=== PATIENT | female | born 1965 | race Caucasian/White ===

== ENCOUNTER → 2016-08-16 | Outpatient (CLI) | payer BC ==
[~2016-08-16] MED LIST: ANAS1TAB PO; CALC600T4 PO; CHOL400C PO
--- NOTE | 2016-08-17 10:29 | RAD ---
DATE: 08/16/2016 EXAM: DIGITAL SCREEN BILAT W/CAD HISTORY: Previous left breast cancer COMPARISON: 08/08/2015, 07/19/2014 This study was interpreted with the benefit of Computerized Aided Detection (CAD). FINDINGS: There are scattered fibroglandular densities in the breasts. There is a stable 5 cm mass in the posterolateral aspect of the left breast. This is most likely an old postoperative hematoma/seroma. A cluster of 2 nodules at the 12:00 location the left breast is unchanged. There is a coarse calcification in this region as well as a biopsy marker. Reportedly the biopsy of the larger nodule revealed a fibroadenoma. There is an unchanged small nodule in the posterolateral aspect of the right breast. A benign type calcification and an additional biopsy marker are again noted in the upper outer quadrant of the right breast. No new or enlarging breast densities are seen. IMPRESSION: Stable mammograms without evidence of malignancy. BI-RADS CATEGORY: 2 BENIGN FINDING(S) RECOMMENDED FOLLOW-UP: 12M 12 MONTH FOLLOW-UP PQRS compliance statement: Patient information was entered into a reminder system with a target due date for the next mammogram. Mammography is a sensitive method for finding small breast cancers, but it does not detect them all and is not a substitute for careful clinical examination. A negative mammogram does not negate a clinically suspicious finding and should not result in delay in biopsying a clinically suspicious abnormality. "Our facility is accredited by the [employer] Mammography [employer]."
== END | disposition home or self-care (01) ==
LOC: MAMMO 15:11
PROVIDERS: ATTEND Internal Medicine Hematology & Oncology
DX: Z12.31 Encounter for screening mammogram for malignant neoplasm of breast (principal)
CPT/HCPCS: G0202; 77067

== ENCOUNTER → 2017-02-06 | Outpatient (CLI) | payer BC ==
--- NOTE | 2017-02-06 11:06 | RAD ---
MRI Lumbar Spine without contrast History: Severe low back pain, left hip pain Technique: Multiplanar, multi sequential noncontrast MR imaging was performed of the lumbar spine. Contrast: None Comparison: None Findings: There appears to be transitional anatomy of the lumbar spine. For the purpose of this report, there is partially formed intervertebral disc space at what is considered S1-S2 with the most inferior fully formed intervertebral disc space considered L5-S1. There is negligible anterior spondylolisthesis at what considered L5-S1. There is ozpt-rc-wmabghkj degenerative disc disease at L5-S1, mild disc desiccation L4-5 and L3-4. There is no significant marrow edema. Conus terminates at L1-2. There is mild lumbar levoscoliosis L3-L4: There is a shallow protrusion in the inferior right neural foramen and right extraforaminal region with associated annular tear. There is yjmj-iu-lzgtypjt narrowing of the right neural foramen greater distally with protrusion contacting the proximal right extraforaminal L3 nerve root. Left neural foramen and spinal canal are adequate. L4-L5: There is mild facet degenerative change greater on the left. Spinal canal and neural foramina are adequate. L5-S1: There is protrusion/mostly contained extrusion eccentric to the far left lateral recess and inferior left neural foramen. There is contact of the ventral surface of the descending left S1 nerve root in the far left lateral recess without displacement. There is moderate to severe narrowing of the left neural foramen with contact of the posterior undersurface of the exiting left L5 nerve root in the neural foramen. There is myrf-fl-ikwsliiw narrowing of the right neural foramen. Impression: 1. There is transitional anatomy, partially formed intervertebral disc space at what is considered S1-S2 with the most inferior fully formed intervertebral disc space considered L5-S1 at which there is negligible anterior spondylolisthesis. 2. Protrusion/mostly contained extrusion at L5-S1 results in narrowing of the left L5-S1 neural foramen, also contacting the descending left S1 nerve root without displacement. 3. There is diuz-db-dmezspvu narrowing of the right L3-4 neural foramen, also protrusion contacting the proximal extraforaminal right L3 nerve root at this level. 4. There is cydq-ka-qjjurmav degenerative disc disease L5-S1. Electronically signed by: Patel Torres MD (02/06/2017 11:03 AM) [id number]
--- NOTE | 2017-02-06 11:28 | RAD ---
MR of the left hip Indication: Left hip pain. Technique: Standard multiplanar sequences are obtained. Findings: Bones: No bone lesion, acute fracture or acute bone marrow edema. No femoral head osteonecrosis. Effusion: No significant effusion Cartilage: No evidence of acute cartilage defect or advanced DJD. Labrum: No evidence of labral tear or para labral cyst Gluteus minimus and medius tendon: Mild left gluteus minimus tendinosis. No evidence of tear. Gluteus medius tendon intact. Hamstring tendon: Intact Iliopsoas tendon: Intact Rectus femoris tendon attachment:Intact Soft tissue: No acute findings Incidentally noted is diverticulosis of the partially visualized sigmoid colon. Impression: Mild left gluteus minimus tendinosis. Electronically signed by: Irineo Vance MD (02/06/2017 11:25 AM) [facility]
== END | disposition home or self-care (01) ==
LOC: MRI 10:02
PROVIDERS: ATTEND Nurse Practitioner Family
DX: M51.26 Other intervertebral disc displacement, lumbar region (principal); M51.37 Other intervertebral disc degeneration, lumbosacral region; M62.48 Contracture of muscle, other site; M43.17 Spondylolisthesis, lumbosacral region; M54.32 Sciatica, left side; K57.90 Diverticulosis of intestine, part unspecified, without perforation or abscess without bleeding; M25.552 Pain in left hip
CPT/HCPCS: 72148; 73721

== ENCOUNTER → 2017-08-22 | Outpatient (CLI) | payer BC | END | disposition home or self-care (01) | LOC: MAMMO 09:12 | DX: Z12.31 Encounter for screening mammogram for malignant neoplasm of breast (principal); Z85.3 Personal history of malignant neoplasm of breast | CPT/HCPCS: 77067 ==

== ENCOUNTER → 2018-07-28 | Outpatient (CLI) | payer BC ==
--- NOTE | 2018-07-28 15:12 | KCIC ---
EXAM: Dual energy x-ray absorptiometry (DEXA). HISTORY: Postmenopausal female presents for osteoporosis screening. COMPARISON: None. TECHNIQUE: Dual energy x-ray absorptiometry of the lumbar spine and left hip was performed. Calculation of bone mineral density based on standard deviations above or below the expected young adult normal value (T-score) was completed. FINDINGS: The average bone mineral density in the 1st through 4th lumbar vertebrae is 1.098 g/cmxcm, corresponding with a T-score of 0.5. The average total bone mineral density in the left hip is 1.103 g/cmxcm, corresponding with a T-score of 1.3. IMPRESSION: Normal bone mineral density. Note: Definitions established by the World Health Organization: 1. Normal: T-score is -1.0 or above. 2. Osteopenia: T-score is between -1.0 and -2.5 . 3. Osteoporosis: T-score is -2.5 or below. Electronically signed by: Kelly Scherer MD (07/28/2018 3:08 PM) [place] [id number]
--- NOTE | 2018-07-28 17:59 | KCIC ---
Bilateral digital screening mammograms with 3-D tomosynthesis: Reason for examination: Routine screening. History of left breast cancer. Comparison is made to previous studies dated 08/22/2017 and 08/16/2016. Bilateral mammograms in CC and oblique projections were obtained with 2-D imaging and 3-D tomosynthesis imaging on a Siemens Inspiration unit and reviewed on the workstation. Interpretation was made with the benefit of CAD. The skin and nipples show no abnormalities. No abnormal axillary lymph nodes are seen. The breast parenchyma shows scattered fatty and fibroglandular density. (Breast density: Category B.) There continues to be a seroma in the 2:00 C position of the left breast. There continues to be some nodularity present at the 12:00 position of the left breast which is unchanged. There are no new dominant masses, suspicious calcifications or architectural distortion. Benign calcifications are present. Biopsy clips are again seen. Impression: Postop changes in the left breast. No evidence of new or recurrent malignancy. Recommend routine screening. BI-RAD Category 2: Benign. "Our facility is accredited by the [employer] Mammography Program." This patient's information has been entered into a reminder system for the patient to be notified with the results of her examination and a target date for the next mammogram. Electronically signed by: Rukhsana Lazo MD (07/28/2018 5:54 PM) [id number]
== END | disposition home or self-care (01) ==
LOC: KCIC DEXA 14:27
PROVIDERS: ATTEND Obstetrics & Gynecology
DX: Z12.31 Encounter for screening mammogram for malignant neoplasm of breast (principal); Z13.820 Encounter for screening for osteoporosis; Z78.0 Asymptomatic menopausal state
CPT/HCPCS: 77063; 77067; 77080

== ENCOUNTER → 2019-08-27 | Outpatient (CLI) | payer BC ==
--- NOTE | 2019-08-31 09:30 | RAD ---
DATE: August 27, 2019 EXAM: MAMMO MARIANO SCREENING BILATERAL HISTORY: History of left breast cancer treated with lumpectomy in 2012. COMPARISON: 2016 through 2018. This study was interpreted with the benefit of Computerized Aided Detection (CAD). FINDINGS: Breast Density: SCATTERED The breast parenchyma shows scattered fibroglandular densities. Breast parenchyma level B.. There are no new dominant suspicious masses, suspicious microcalcifications or evidence of architectural distortion. Prominent postoperative seroma is again seen within the upper outer quadrant of the left breast posteriorly and is unchanged. Bilateral nodularity is stable. Skin thickening of the left breast is again evident and may related to previous radiation therapy. IMPRESSION: Stable mammogram. No mammographic indicators for new or recurrent malignancy. BI-RADS CATEGORY: 2 BENIGN FINDING RECOMMENDED FOLLOW-UP: 12M 12 MONTH FOLLOW-UP PQRS compliance statement: Patient information was entered into a reminder system with a target due date August 28, 2020 for the next mammogram. Mammography is a sensitive method for finding small breast cancers, but it does not detect them all and is not a substitute for careful clinical examination. A negative mammogram does not negate a clinically suspicious finding and should not result in delay in biopsying a clinically suspicious abnormality. "Our facility is accredited by the [employer] Mammography [employer]." The patient's breast density may affect the ability of mammography to detect breast cancer. There are 4 categories of breast density, A, B, C and D. Breast density A means that most of the breast tissue is replaced with adipose tissue and therefore is not dense. Breast density B means that the breast tissue is mildly dense and scattered. Breast density C means that the breast tissue is heterogeneously dense. Breast density D means that the breast tissue is very dense. Breast densities especially C and D may decrease the sensitivity of mammography to detect breast cancer. Therefore, the patient may benefit from 3-D breast mammography (3D breast tomography) as a part of their screening mammogram. Insurance may or may not pay for this additional imaging. The patient's breast density based on today's mammogram is category B.
== END | disposition home or self-care (01) ==
LOC: MAMMO 09:08
PROVIDERS: ATTEND Family Medicine
DX: Z12.31 Encounter for screening mammogram for malignant neoplasm of breast (principal); Z85.3 Personal history of malignant neoplasm of breast; Z92.3 Personal history of irradiation
CPT/HCPCS: 77063; 77067

== ENCOUNTER → 2020-09-14 | Outpatient (CLI) | payer BC ==
[~2020-09-14] MED LIST changes: -CALC600T4 PO; +CALC600T6 PO
--- NOTE | 2020-09-15 10:07 | RAD ---
DATE: 09/14/2020 8:46 AM EXAM: MAMMO MARIANO SCREENING BILATERAL HISTORY: Screening COMPARISON: 08/27/2019, 07/28/2018 Bilateral CC and MLO views of the breasts were performed. Bilateral breast tomosynthesis was performed in CC and MLO projections. This study was interpreted with the benefit of Computerized Aided Detection (CAD). FINDINGS: Breast Density: FATTY The Breast Parenchyma is primarily fatty replaced. Breast parenchyma level density A. Stable benign posttreatment changes in the left breast with volume loss, skin thickening, trabecular coarsening and a 4.8 cm seroma in the posterior upper outer left breast. No suspicious masses, microcalcifications or architectural distortion is present to suggest malignancy in either breast. The visualized axillae are unremarkable. IMPRESSION: No mammographic evidence of malignancy. BI-RADS CATEGORY: 2 BENIGN FINDING(S) RECOMMENDED FOLLOW-UP: 12M 12 MONTH FOLLOW-UP Annual screening mammography is recommended, unless clinically indicated sooner based on symptoms or change in physical exam. PQRS compliance statement: Patient information was entered into a reminder system with a target due date for the next mammogram. Mammography is a sensitive method for finding small breast cancers, but it does not detect them all and is not a substitute for careful clinical examination. A negative mammogram does not negate a clinically suspicious finding and should not result in delay in biopsying a clinically suspicious abnormality. "Our facility is accredited by the [employer] Mammography [employer]."
== END ==
LOC: MAMMO 11:09
PROVIDERS: ATTEND Obstetrics & Gynecology
DX: Z12.31 Encounter for screening mammogram for malignant neoplasm of breast (principal); Z85.3 Personal history of malignant neoplasm of breast
CPT/HCPCS: 77063; 77067

== ENCOUNTER → 2021-09-20 | Outpatient (CLI) | payer BC ==
[~2021-09-20] MED LIST changes: -CALC600T6 PO; +CALC600T60 PO
--- NOTE | 2021-09-20 10:44 | RAD ---
INDICATION: 56 years of age asymptomatic female patient presents for screening mammography. Personal history of left breast cancer treated with conservation therapy. TECHNIQUE: Full field craniocaudal and mediolateral oblique images of both breasts were obtained usi ng digital technique with tomosynthesis and also analyzed with computer-aided detection software. COMPARISON: Prior mammographic imaging dating back to 07/19/2014. BREAST COMPOSITION: Scattered FINDINGS: Similar-appearing postlumpectomy changes in the left breast at the 2:00 position, posterior depth. Si milar circumscribed left breast mass at the 12:00 position, anterior depth with adjacent biopsy marke r. Additional bilateral breast biopsy clips are again noted. No suspicious masses, microcalcification s or architectural distortion is present to suggest malignancy in either breast. The visualized axillae are unremarkable. IMPRESSION: No mammographic evidence of malignancy. RECOMMENDATION: Annual screening mammography is recommended, unless clinically indicated sooner based on symptoms or change in physical exam. BIRADS 2: BENIGN This study was interpreted with the benefit of Computerized Aided Detection (CAD). Patient information is entered into the reminder system with a target due date for the next screening mammogram. Mammography is the most sensitive method for finding small breast cancers, but it does not detect the m all and is not a substitute for careful clinical examination. A negative mammogram does not negate a clinically suspicious finding and should not result in delay in biopsying a clinically suspicious a bnormality. "Our facility is accredited by the [employer] Mammography [employer]." Electronically signed by: Valdo Acosta DO (09/20/2021 10:41 AM) [id number]
== END ==
LOC: MAMMO 07:58
PROVIDERS: ATTEND Internal Medicine Hematology & Oncology
DX: Z12.31 Encounter for screening mammogram for malignant neoplasm of breast (principal)
CPT/HCPCS: 77063; 77067